=== PATIENT | male | born 1995 | race Caucasian/White ===

== ENCOUNTER 2017-01-30 16:44 | Inpatient (IN) | payer OTHER ==
[2017-01-30 17:43] LABS: % IMMATURE GRANULYOCYTES 0.3 % (0.0-1.1); ABSOLUTE IMMATURE GRANULOCYTES 0.02 10^3/uL (0.00-0.10); ADD DIFF? NO; ADD MORPH? NO; ADD SCAN? NO; ATYPICAL LYMPHOCYTE FLAG 70 (0-99); FRAGMENT RBC FLAG 0 (0-99); HEMATOCRIT 44.9 % (40.0-51.0); HEMOGLOBIN 15.1 g/dL (13.7-17.5); LEFT SHIFT FLG 0 (0-99); LIPEMIA HEMOLYSIS FLAG 80 (0-99); MEAN CELL HEMOGLOBIN 30.7 pg (27.9-34.1); MEAN CELL HEMOGLOBIN CONCENTR. 33.6 g/dL (32.4-36.7); MEAN CELL VOLUME 91.3 fL (81.5-99.8); MEAN PLATELET VOLUME 9.7 fL (8.7-11.7); PLATELET CLUMPS FLAG 10 (0-99); PLATELET COUNT 175 10^3/uL (150-400); RED BLOOD CELL COUNT 4.92 10^6/uL (4.40-6.38); RED CELL DISTRIBUTION WIDTH 13.5 % (11.5-15.2)
[2017-01-30 17:53] LABS: ANION GAP 12 mEq/L (8-16); CALCIUM 10.1 mg/dL (8.5-10.4); CARBON DIOXIDE 25 mEq/l (22-31); CHLORIDE 104 mEq/L (97-110); CREATININE 0.9 mg/dL (0.7-1.3); ETHANOL SERUM < 10 mg/dL (0-10); GLOMERULAR FILTRATION RATE > 60; GLUCOSE 92 mg/dL (70-100); POTASSIUM 4.3 mEq/L (3.5-5.2); SALICYLATE < 1.0 mg/dL (2.0-20.0); SODIUM 141 mEq/L (134-144)
--- NOTE | 2017-01-30 18:55 | EDPHY ---
H & P Stated Complaint: M1, brought by PD HPI/ROS: CHIEF COMPLAINT: M1, suicidal ideation HISTORY OF PRESENT ILLNESS: Patient reports to emergency department with an M1 completed by [place] [employer] due to reports of suicidal ideation. The M1 form documents that the father alleges that the patient was making suicidal statements. Documentation states that the patient was starting to go shoot himself and harm himself. Also states that he was punching himself in the face and head. He categorically denies all this. He says that he is fine. He says that he had an argument with his family in feels that they made the statements falsely. He denies any intent to harm himself. He denies any previous attempt to do so. Denies depression. He has no complaints of any kind. PSYCHIATRIC DIAGNOSES: Denies PRIOR PSYCHIATRIC EVALUATIONS: Denies M1/DETAINER: By [place] [employer] at 3:37 p.m. today REVIEW OF SYSTEMS: Ten systems reviewed and are negative unless otherwise noted in the HPI EXAMINATION General Appearance: Alert, no distress Head: normocephalic, atraumatic Eyes: Pupils equal and round, no conjunctival pallor or injection ENT, Mouth: Mucous membranes moist. Uvula midline. Neck: Normal inspection, supple, non-tender. Trachea midline Respiratory: Lungs are clear to auscultation. No wheezing, rhonchi or crackles Cardiovascular: Regular rate and rhythm. No murmur. Pulses intact distally. Gastrointestinal: Abdomen is soft and nontender Back: non-tender, no bony abnormalities Neurological: A&O, nonfocal, normal gait Skin: Warm and dry, no rash Extremities: Nontender, no pedal edema Psychiatric: Mood and affect normal. Denies suicidal ideation or homicidal ideation. DIFFERENTIAL DIAGNOSES: Including but not limited to suicidal ideation, suicide attempt, depression, schizophrenia, bipolar MDM: 5:55 p.m. Suicidal ideation with reports of thoughts of wanting to shoot himself. He denies any of these statements that are listed in his M1. He is medically cleared for evaluation at this time. He is resting comfortably in no acute distress. He is cooperative at this time. Vital signs are stable. 7:00 p.m. Patient is resting comfortably in no acute distress. Still awaiting confirmation of the recommendation of mental health professional. 9:40 p.m. Notified by RN that the patient has been accepted to [address] [place] [address] for inpatient psychiatric care. He has been accepted by Dr. White. He will be transferred by EMS shortly. He remains calm and cooperative in no acute distress. SUPERVISION: This patient was independently evaluated without direct examination by the attending physician. Case was discussed with attending physician. Source: Patient - Personal History Current Tetanus/Diphtheria Vaccine: Yes Current Tetanus Diphtheria and Acellular Pertussis (TDAP): Yes - Medical/Surgical History Hx Asthma: No Hx Chronic Respiratory Disease: No Hx Diabetes: No Hx Cardiac Disease: No Hx Renal Disease: No Hx Cirrhosis: No Hx Alcoholism: No Hx HIV/AIDS: No Hx Splenectomy or Spleen Trauma: No Other PMH: mental health issues in past - Social History Smoking Status: Current some day smoker Constitutional: Initial Vital Signs Temperature (C) 98.8 F 01/30/17 16:49 Heart Rate 95 01/30/17 16:49 Respiratory Rate 18 01/30/17 16:49 Blood Pressure 156/88 H 01/30/17 16:49 O2 Sat (%) 95 01/30/17 16:49 O2 Delivery Mode Room Air Allergies/Adverse Reactions: No Known Allergies Allergy (Unverified 01/30/17 16:59) Medical Decision Making - Data Points Laboratory Results: Laboratory Results 01/30/17 17:39 01/30/17 17:39 01/30/17 01/30/17 01/30/17 17:39 17:39 17:20 WBC 6.04 10^3/uL 10^3/uL (3.80-9.50) RBC 4.92 10^6/uL 10^6/uL (4.40-6.38) Hgb 15.1 g/dL g/dL (13.7-17.5) Hct 44.9 % % (40.0-51.0) MCV 91.3 fL fL (81.5-99.8) MCH 30.7 pg pg (27.9-34.1) MCHC 33.6 g/dL g/dL (32.4-36.7) RDW 13.5 % % (11.5-15.2) Plt Count 175 10^3/uL 10^3/uL (150-400) MPV 9.7 fL fL (8.7-11.7) Neut % (Auto) 64.6 % % (39.3-74.2) Lymph % (Auto) 24.5 % % (15.0-45.0) [place] % (Auto) 8.9 % % (4.5-13.0) Eos % (Auto) 1.2 % % (0.6-7.6) Baso % (Auto) 0.5 % % (0.3-1.7) Nucleat RBC Rel Count 0.0 % % (0.0-0.2) Absolute Neuts (auto) 3.90 10^3/uL 10^3/uL (1.70-6.50) Absolute Lymphs (auto) 1.48 10^3/uL 10^3/uL (1.00-3.00) Absolute Monos (auto) 0.54 10^3/uL 10^3/uL (0.30-0.80) Absolute Eos (auto) 0.07 10^3/uL 10^3/uL (0.03-0.40) Absolute Basos (auto) 0.03 10^3/uL 10^3/uL (0.02-0.10) Absolute Nucleated RBC 0.00 10^3/uL 10^3/uL (0-0.01) Immature Gran % 0.3 % % (0.0-1.1) Immature Gran # 0.02 10^3/uL 10^3/uL (0.00-0.10) Sodium 141 mEq/L mEq/L (134-144) Potassium 4.3 mEq/L mEq/L (3.5-5.2) Chloride 104 mEq/L mEq/L (97-110) Carbon Dioxide 25 mEq/l mEq/l (22-31) Anion Gap 12 mEq/L mEq/L (8-16) BUN 12 mg/dL mg/dL (7-23) Creatinine 0.9 mg/dL mg/dL (0.7-1.3) Estimated GFR > 60 Glucose 92 mg/dL mg/dL (70-100) Calcium 10.1 mg/dL mg/dL (8.5-10.4) Salicylates < 1.0 mg/dL L mg/dL (2.0-20.0) Urine Opiates Screen NEGATIVE (NEGATIVE) Acetaminophen < 10 mcg/mL L mcg/mL (10.0-30.0) Urine Barbiturates NEGATIVE (NEGATIVE) Ur Phencyclidine Scrn NEGATIVE (NEGATIVE) Ur Amphetamine Screen NEGATIVE (NEGATIVE) U Benzodiazepines Scrn NEGATIVE (NEGATIVE) Urine Cocaine Screen NEGATIVE (NEGATIVE) U Marijuana (THC) Screen NEGATIVE (NEGATIVE) Ethyl Alcohol < 10 mg/dL mg/dL (0-10) Departure - Departure Disposition: [facility] IP Clinical Impression: Suicidal ideation Condition: Good Referrals: NONE *PRIMARY CARE P,. [Primary Care Provider] - As per Instructions
[2017-01-30] MEDS ORDERED: OLANZapine DISINTEGR 5 MG TAB PO PRN (22:00)
[2017-01-30] MEDS ORDERED: MAG HYDROX/AL HYDROX/SIMETH 30 ML UDCUP PO PRN (22:00)
[2017-01-30] MEDS ORDERED: LORazepam 0.5 MG TAB PO PRN (22:00)
[2017-01-30] MEDS ORDERED: NICOTINE POLACRILEX 2 MG GUM B PRN (22:00)
[2017-01-30] MEDS ORDERED: MAGNESIUM HYDROXIDE 30 ML UDCUP PO PRN (22:00)
[2017-01-30] MEDS ORDERED: ACETAMINOPHEN 325 MG TAB PO PRN (22:00)
--- NOTE | 2017-01-31 10:05 | GHP ---
[f rep st] HISTORY AND PHYSICAL DATE OF ADMISSION: 01/30/2017 CHIEF COMPLAINT: Reported suicidal ideation. HISTORY OF PRESENT ILLNESS: A 21-year-old male with a history of previous psychiatric illness, who was brought in by his father with reported threats to commit suicide. The patient reportedly was te lling his father that he was going to shoot himself and harm himself. Upon my evaluation, patient d enies categorically any threats to hurt himself or hurt others. The patient denies any headache, an y vision changes, any dizziness, any chest pain, any shortness of breath. Says occasionally he feel s palpitations, which he can calm when he sits and breathes deeply. Denies any nausea or vomiting. Has been tolerating normal oral intake. Denies any diarrhea, constipation, dysuria, hematuria, num bness, tingling or lower extremity edema. The patient reports being started on several psychiatric medications in his youth, as early as age 16. PAST MEDICAL HISTORY,: Documented psychiatric illness. Denies medical illness. SOCIAL HISTORY: Negative for tobacco. Negative for alcohol. He says he has been smoking marijuana at least 10 times a day since age 14. FAMILY HISTORY: Positive for psychiatric illness. REVIEW OF SYSTEMS: A 10-point review of systems is negative with the exception of that reported in the HPI. PHYSICAL EXAMINATION: VITAL SIGNS: Blood pressure 113/61, heart rate 57, respiratory rate 14, satu rating 98% on room air, 36.7. GENERAL: This is a very healthy-appearing young male in no acute dis tress. HEENT: Notable for moist mucous membranes. Eye exam is negative for any icterus. CARDIAC: Patient is regular rate and rhythm. PULMONARY: Clear to auscultation bilaterally. GASTROINTESTI NAL: Positive bowel sounds. Abdomen is soft and nontender in all 4 quadrants. MUSCULOSKELETAL: N egative for any lower extremity edema. SKIN: Negative for any rashes. Patient does have extensive tattooing. PSYCHIATRIC: He is pleasant and cooperative on interview and examination. NEUROLOGIC: He is alert and oriented x3. Strength is 5/5 bilaterally of the upper and lower extremities, and sensation is intact throughout. DATA: White count is 6.0, hematocrit 44.9, platelets of 179. BMP is normal, and urinary tox is neg ative. ASSESSMENT AND PLAN: This is a 21-year-old male admitted on a mental health hold for suicidal ideat ion. 1. Acute suicidal ideation: The psychiatry team will reconcile family's concerns and patient's rep ort. There are no concerning medical issues contributing to the patient's presentation. 2. Prophylaxis: Patient is active and ambulating. 3. Diet: Regular, tolerating without complication. 4. Disposition: Will be per the primary psychiatric team. I discussed the case with the RN on behavioral health. The patient has no acute needs for medicatio ns from a medical standpoint. /[id number]/MODL
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
--- NOTE | 2017-02-01 14:11 | SOAPPROG ---
SOAP Progress Note Assessment/Plan: Assessment: Plan: Subjective: Pt seen, discussed with staff. Reports feeling "perfectly fine." Has been calm and cooperative on the unit. No behavioral issues. He c/o feeling lonely , missing his girlfriend. He states he has trouble sleeping by himself due to nightmares. Continues to refuse any medications. Sleep good. Objective: Vital Signs Temp Pulse Resp BP Pulse Ox 36.5 C 78 14 121/68 H 98 02/01/17 06:00 02/01/17 06:00 02/01/17 06:00 02/01/17 06:00 02/01/17 06:00 MSE: Calm, coop. Affect is euthymic, stable, approp. Mood is "good." TP linear. TC reveals concrete thinking and rather idiosyncratic reasoning. He is also notably inflexible, especially when he seems not to understand seemingly simple concepts. An example is when I discuss the benefits of him switching his Medicaid from [place] to [place]. He states he cannot do this because it is through his mother in [place]. I explain that it is assigned to him and is not a group policy, but he repeatedly states it is through his mother because she is in [place]. He denies SI. - Time Spent With Patient Time Spent With Patient: 25" ICD10 Worksheet Patient Problems: Problems Problem Status Onset Suicidal ideation Acute
[2017-02-02 06:23] VITALS: BP 117/70; PULSE 58; RESP 16; TEMP 97.9; O2SAT 99
== END 2017-02-02 13:15 | disposition home or self-care (01) | DRG 886 ==
LOC: BBEH 22:50
PROVIDERS: ADMIT Psychiatry & Neurology Psychiatry; ATTEND Psychiatry & Neurology Psychiatry
DX: F63.9 Impulse disorder, unspecified (principal); F12.90 Cannabis use, unspecified, uncomplicated; Z59.0 Homelessness; Z73.9 Problem related to life management difficulty, unspecified
CPT/HCPCS: 80305; G0480